=== PATIENT | male | born 1960 | race Caucasian/White ===

== ENCOUNTER 2020-01-26 12:43 | Inpatient (IN) | payer MEDICAID ==
[~2020-01-26] VITALS: Ht 167.6 cm; Wt 63.8 kg
[2020-01-26] MEDS ORDERED: BENZONATATE 100 MG CAPSULE PO ONE (13:30)
[2020-01-26] MEDS ORDERED: ACETAMINOPHEN 500 MG TABLET PO ONE (13:30)
[2020-01-26] MEDS ORDERED: SODIUM CHLORIDE 0.9% 2,050 ML IV ONE (14:24)
[2020-01-26] MEDS ORDERED: AZITHROMYCIN 500 MG/NS 250 ML IV ONE (14:30)
[2020-01-26] MEDS ORDERED: CefTRIAXone 1 GM/DEXTROSE 50 ML IV ONE (14:30)
[2020-01-26] MEDS ORDERED: 0.9% SODIUM CHLORIDE 10 ML SYRINGE IVP PRN (14:45)
[2020-01-26] MEDS ORDERED: ACETAMINOPHEN 325 MG TABLET PO PRN (14:45)
[2020-01-26 15:20] LABS: BASOPHILS % (AUTO) 0.2 % (0.0-2.0); EOSINOPHILS % (AUTO) 0 % (1.0-6.0); HEMATOCRIT 36.5 % (41-53); HEMOGLOBIN 12.5 g/dL (13.5-17.5); LYMPHOCYTES # (AUTO) 0.6 K/uL (1.0-4.8); LYMPHOCYTES % (AUTO) 5.2 % (22.0-44.0); MEAN CORPUSCULAR HEMOGLOBIN 31.9 pg (26.0-34.0); MEAN CORPUSCULAR HGB CONC 34.3 G/dL (31.0-37.0); MEAN CORPUSCULAR VOLUME 93 fL (80-100); MONOCYTES # (AUTO) 0.4 K/uL (0.1-1.0); MONOCYTES % (AUTO) 3.6 % (2.0-9.0); NEUTROPHILS # (AUTO) 11.1 K/uL (1.8-7.7); PLATELET COUNT (AUTO) 192 K/uL (150-450); RED BLOOD CELL COUNT(AUTO) 3.92 MIL/uL (4.50-5.90); RED CELL DISTRIBUTION WIDTH 13.8 % (11.5-14.5)
[2020-01-26 15:30] LABS: ANION GAP 8 mmol/L (8-16); CALCIUM, TOTAL 7.9 mg/dL (8.8-10.5); CARBON DIOXIDE 24 mmol/L (22-29); CHLORIDE 103 mmol/L (98-107); GLOMERULAR FILTR. RATE CALC > 60 mL/min (>60); GLUCOSE,RANDOM 117 mg/dL (70-110); POTASSIUM 3.7 mmol/L (3.5-5.1); SODIUM SERUM 135 mmol/L (136-145); UREA NITROGEN, BLOOD 11 mg/dL (7-18)
[2020-01-26 15:43] LABS: B-TYPE NATRIURETIC PEPTIDE 126 pg/mL (0-100)
[2020-01-26 15:50] LABS: APPEARANCE,URINE CLEAR (CLEAR); BILIRUBIN,URINE NEGATIVE (NEGATIVE); GLUCOSE, URINE (UA) NEGATIVE (NEGATIVE); KETONES,URINE NEGATIVE (NEGATIVE); LEUKOCYTE ESTERASE ,URINE NEGATIVE (NEGATIVE); NITRATE,URINE NEGATIVE (NEGATIVE); OCCULT BLOOD,URINE NEGATIVE (NEGATIVE); PROTEIN,URINE POS 1+ (NEGATIVE); UROBILINOGEN,URINE 0.2 mg/dL (<=1.0)
[2020-01-26 15:55] LABS: ALANINE AMINOTRANSFERASE 80 U/L (12-78); ALBUMIN 2.9 g/dL (3.4-5.0); ALKALINE PHOSPHATASE 351 U/L (46-116); ASPARTATE AMINOTRANSFERASE 84 U/L (15-37); BILIRUBIN,TOTAL 0.5 mg/dL (0.1-1.0); C-REACTIVE PROTEIN QUANT 21.05 mg/dL (0.00-0.30); CREATINE KINASE, TOTAL ONLY 91 U/L (39-308); TOTAL PROTEIN, SERUM 6.8 g/dL (6.4-8.2)
[2020-01-26 16:10] LABS: BACTERIA,URINE None Seen /HPF (None Seen); RBC,URINE None Seen /HPF (0-2); WBC,URINE 0-2 /HPF (0-5)
[2020-01-26 16:11] LABS: SQUAMOUS EPITHELIAL CELL,UR None Seen /LPF (None Seen)
[2020-01-26 16:25] LABS: INFLUENZA TYPE A NEGATIVE FOR TYPE A (NEGATIVE); INFLUENZA TYPE B NEGATIVE FOR TYPE B (NEGATIVE)
[2020-01-26] MEDS ORDERED: MAGNESIUM HYDROXIDE SUSPENSION 30 ML UDCUP PO PRN (16:45)
[2020-01-26] MEDS ORDERED: MORPHINE SULFATE 2 MG/ML SYRINGE IVP PRN (16:45)
[2020-01-26] MEDS ORDERED: BISACODYL 10 MG RECTAL RECTAL SUPPOSITORY PR PRN (16:45)
[2020-01-26 17:33] LABS: FERRITIN 917 ng/mL (26-388)
[2020-01-26 17:41] LABS: D-DIMER 0.46 mg/L FEU (0.00-0.50)
[2020-01-26 17:51] VITALS: BP 103/67
[2020-01-26 17:53] LABS: LACTATE DEHYDROGENASE 436 U/L (85-227)
[2020-01-26 19:26] VITALS: BP 115/76
[2020-01-26] MEDS ORDERED: HYDROXYCHLOROQUINE SULFATE 200 MG TABLET PO SCH (21:00)
[2020-01-26] MEDS: THIAMINE HCL 100 MG/ML 2ML VIAL IVP SCH (21:06)
[2020-01-26] MEDS: DOCUSATE SODIUM 100 MG CAPSULE PO SCH (21:06)
[2020-01-26] MEDS: ASCORBIC ACID 500 MG TABLET PO SCH (21:06)
[2020-01-26] MEDS: GuaiFENesin/D-METHORPHAN/PHENYLEPH 5 ML LIQUID ORAL.SYG PO PRN (21:19)
[2020-01-26 23:26] VITALS: BP 101/73
[2020-01-27 03:34] VITALS: BP 105/69
[2020-01-27] MEDS: GuaiFENesin/D-METHORPHAN/PHENYLEPH 5 ML LIQUID ORAL.SYG PO PRN ×3 (06:57→23:43)
[2020-01-27 07:08] LABS: BASOPHILS % (AUTO) 0.1 % (0.0-2.0); EOSINOPHILS % (AUTO) 0 % (1.0-6.0); HEMATOCRIT 36.6 % (41-53); HEMOGLOBIN 12.5 g/dL (13.5-17.5); LYMPHOCYTES % (AUTO) 6.8 % (22.0-44.0); MEAN CORPUSCULAR HEMOGLOBIN 32.2 pg (26.0-34.0); MEAN CORPUSCULAR HGB CONC 34.2 G/dL (31.0-37.0); MEAN CORPUSCULAR VOLUME 94 fL (80-100); MONOCYTES # (AUTO) 0.5 K/uL (0.1-1.0); MONOCYTES % (AUTO) 3.1 % (2.0-9.0); NEUTROPHILS # (AUTO) 13.7 K/uL (1.8-7.7); PLATELET COUNT (AUTO) 208 K/uL (150-450); RED BLOOD CELL COUNT(AUTO) 3.89 MIL/uL (4.50-5.90)
[2020-01-27 07:45] VITALS: BP 109/71
[2020-01-27 07:52] LABS: C-REACTIVE PROTEIN QUANT 25.7 mg/dL (0.00-0.30)
[2020-01-27] MEDS: HEPARIN SODIUM,PORCINE 5,000 UNITS/ML VIAL SQ SCH ×4 (08:11→23:44)
[2020-01-27] MEDS: THIAMINE HCL 100 MG/ML 2ML VIAL IVP SCH ×2 (08:11→20:43)
[2020-01-27] MEDS: PANTOPRAZOLE SODIUM 40 MG DR TABLET PO SCH (08:12)
[2020-01-27] MEDS: AZITHROMYCIN 500 MG TABLET PO SCH (08:12)
[2020-01-27] MEDS: ONDANSETRON HCL 4 MG/2 ML VIAL IVP PRN (08:12)
[2020-01-27] MEDS: DOCUSATE SODIUM 100 MG CAPSULE PO SCH ×2 (08:12→20:43)
[2020-01-27] MEDS: ASCORBIC ACID 500 MG TABLET PO SCH ×3 (08:12→20:43)
[2020-01-27] MEDS ORDERED: HYDROXYCHLOROQUINE SULFATE 200 MG TABLET PO SCH (09:00)
[2020-01-27] MEDS ORDERED: HYDROXYCHLOROQUINE SULFATE 200 MG TABLET PO ONE ×2 (10:30→21:00)
[2020-01-27 11:21] VITALS: BP 98/60
[2020-01-27] MEDS ORDERED: SODIUM CHLORIDE 0.9% 500 ML IV ONE (15:23)
[2020-01-27 15:25] VITALS: BP 93/60
[2020-01-27] MEDS: CefTRIAXone 1 GM/DEXTROSE 50 ML IV SCH (15:42)
[2020-01-27 19:51] VITALS: BP 98/62
[2020-01-27] MEDS: HYDROCODONE/ACETAMINOPHEN 5-325 MG TABLET PO PRN (20:44)
[2020-01-27 23:27] VITALS: BP 124/75
[2020-01-28 04:39] VITALS: BP 122/70
[2020-01-28 07:26] LABS: BASOPHILS % (AUTO) 0.3 % (0.0-2.0); EOSINOPHILS % (AUTO) 0.1 % (1.0-6.0); HEMATOCRIT 36.8 % (41-53); HEMOGLOBIN 12.5 g/dL (13.5-17.5); LYMPHOCYTES # (AUTO) 0.8 K/uL (1.0-4.8); LYMPHOCYTES % (AUTO) 7.8 % (22.0-44.0); MEAN CORPUSCULAR HEMOGLOBIN 32.4 pg (26.0-34.0); MEAN CORPUSCULAR HGB CONC 34.1 G/dL (31.0-37.0); MEAN CORPUSCULAR VOLUME 95 fL (80-100); MONOCYTES # (AUTO) 0.5 K/uL (0.1-1.0); NEUTROPHILS # (AUTO) 9.4 K/uL (1.8-7.7); PLATELET COUNT (AUTO) 245 K/uL (150-450); RED BLOOD CELL COUNT(AUTO) 3.87 MIL/uL (4.50-5.90)
[2020-01-28 07:37] VITALS: BP 117/69
[2020-01-28 07:44] LABS: NEUTROPHILS % (AUTO) 86.8 % (40.0-70.0)
[2020-01-28 07:54] LABS: ALANINE AMINOTRANSFERASE 100 U/L (12-78); ALBUMIN 2.6 g/dL (3.4-5.0); ALKALINE PHOSPHATASE 363 U/L (46-116); ANION GAP 9 mmol/L (8-16); ASPARTATE AMINOTRANSFERASE 98 U/L (15-37); BILIRUBIN,TOTAL 0.5 mg/dL (0.1-1.0); C-REACTIVE PROTEIN QUANT 20.69 mg/dL (0.00-0.30); CALCIUM, TOTAL 8.3 mg/dL (8.8-10.5); CARBON DIOXIDE 24 mmol/L (22-29); CHLORIDE 102 mmol/L (98-107); CREATININE 1.01 mg/dL (0.60-1.30); FERRITIN 748 ng/mL (26-388); GLOMERULAR FILTR. RATE CALC > 60 mL/min (>60); GLUCOSE,RANDOM 101 mg/dL (70-110); POTASSIUM 3.8 mmol/L (3.5-5.1); SODIUM SERUM 135 mmol/L (136-145); TOTAL PROTEIN, SERUM 6.8 g/dL (6.4-8.2); UREA NITROGEN, BLOOD 15 mg/dL (7-18)
[2020-01-28 08:06] LABS: LACTATE DEHYDROGENASE 499 U/L (85-227)
[2020-01-28] MEDS: GuaiFENesin/D-METHORPHAN/PHENYLEPH 5 ML LIQUID ORAL.SYG PO PRN ×3 (08:35→23:50)
[2020-01-28] MEDS: ASCORBIC ACID 500 MG TABLET PO SCH ×3 (08:36→20:22)
[2020-01-28] MEDS: HEPARIN SODIUM,PORCINE 5,000 UNITS/ML VIAL SQ SCH ×3 (08:36→23:50)
[2020-01-28] MEDS: HYDROXYCHLOROQUINE SULFATE 200 MG TABLET PO SCH ×2 (08:36→21:19)
[2020-01-28] MEDS: PANTOPRAZOLE SODIUM 40 MG DR TABLET PO SCH (08:36)
[2020-01-28] MEDS: AZITHROMYCIN 500 MG TABLET PO SCH (08:36)
[2020-01-28] MEDS: DOCUSATE SODIUM 100 MG CAPSULE PO SCH ×2 (08:37→20:22)
[2020-01-28] MEDS: THIAMINE HCL 100 MG/ML 2ML VIAL IVP SCH ×2 (08:37→20:22)
[2020-01-28 12:00] VITALS: BP 119/69
[2020-01-28] MEDS: ZINC GLUCONATE 50 MG TABLET PO SCH (12:23)
[2020-01-28 16:00] VITALS: BP 126/67
[2020-01-28] MEDS: CefTRIAXone 1 GM/DEXTROSE 50 ML IV SCH (16:13)
[2020-01-28 20:00] VITALS: BP 129/72
[2020-01-29 00:16] VITALS: BP 121/69
[2020-01-29] MEDS: HYDROCODONE/ACETAMINOPHEN 5-325 MG TABLET PO PRN (03:13)
[2020-01-29] MEDS: GuaiFENesin/D-METHORPHAN/PHENYLEPH 5 ML LIQUID ORAL.SYG PO PRN ×2 (05:52→13:55)
[2020-01-29 06:01] VITALS: BP 105/58
[2020-01-29 06:54] LABS: BASOPHILS % (AUTO) 0.1 % (0.0-2.0); EOSINOPHILS % (AUTO) 0.1 % (1.0-6.0); HEMATOCRIT 35.2 % (41-53); HEMOGLOBIN 12.4 g/dL (13.5-17.5); LYMPHOCYTES # (AUTO) 0.9 K/uL (1.0-4.8); LYMPHOCYTES % (AUTO) 9.6 % (22.0-44.0); MEAN CORPUSCULAR HEMOGLOBIN 33.5 pg (26.0-34.0); MEAN CORPUSCULAR HGB CONC 35.3 G/dL (31.0-37.0); MEAN CORPUSCULAR VOLUME 95 fL (80-100); MONOCYTES # (AUTO) 0.5 K/uL (0.1-1.0); MONOCYTES % (AUTO) 5.7 % (2.0-9.0); NEUTROPHILS # (AUTO) 7.6 K/uL (1.8-7.7); NEUTROPHILS % (AUTO) 84.5 % (40.0-70.0); PLATELET COUNT (AUTO) 322 K/uL (150-450); RED BLOOD CELL COUNT(AUTO) 3.71 MIL/uL (4.50-5.90); RED CELL DISTRIBUTION WIDTH 13.9 % (11.5-14.5)
[2020-01-29 07:47] LABS: ALANINE AMINOTRANSFERASE 130 U/L (12-78); ALBUMIN 2.7 g/dL (3.4-5.0); ALKALINE PHOSPHATASE 493 U/L (46-116); ANION GAP 10 mmol/L (8-16); ASPARTATE AMINOTRANSFERASE 111 U/L (15-37); BILIRUBIN,TOTAL 0.7 mg/dL (0.1-1.0); CALCIUM, TOTAL 8.6 mg/dL (8.8-10.5); CARBON DIOXIDE 24 mmol/L (22-29); CHLORIDE 99 mmol/L (98-107); CREATININE 1.01 mg/dL (0.60-1.30); FERRITIN 770 ng/mL (26-388); GLOMERULAR FILTR. RATE CALC > 60 mL/min (>60); GLUCOSE,RANDOM 107 mg/dL (70-110); POTASSIUM 3.9 mmol/L (3.5-5.1); SODIUM SERUM 133 mmol/L (136-145); TOTAL PROTEIN, SERUM 7.3 g/dL (6.4-8.2); UREA NITROGEN, BLOOD 9 mg/dL (7-18)
[2020-01-29 08:00] VITALS: BP 118/62
[2020-01-29 08:07] LABS: LACTATE DEHYDROGENASE 467 U/L (85-227)
[2020-01-29] MEDS: HEPARIN SODIUM,PORCINE 5,000 UNITS/ML VIAL SQ SCH ×2 (08:55→16:33)
[2020-01-29] MEDS: ASCORBIC ACID 500 MG TABLET PO SCH ×3 (08:55→21:11)
[2020-01-29] MEDS: THIAMINE HCL 100 MG/ML 2ML VIAL IVP SCH ×2 (08:55→21:12)
[2020-01-29] MEDS: HYDROXYCHLOROQUINE SULFATE 200 MG TABLET PO SCH ×2 (08:55→21:12)
[2020-01-29] MEDS: AZITHROMYCIN 500 MG TABLET PO SCH (08:55)
[2020-01-29] MEDS: PANTOPRAZOLE SODIUM 40 MG DR TABLET PO SCH (08:56)
[2020-01-29] MEDS: ZINC GLUCONATE 50 MG TABLET PO SCH (08:56)
[2020-01-29] MEDS: DOCUSATE SODIUM 100 MG CAPSULE PO SCH ×2 (08:56→21:00)
[2020-01-29] MEDS: ACETAMINOPHEN 325 MG TABLET PO PRN (12:43)
[2020-01-29] MEDS: ONDANSETRON HCL 4 MG/2 ML VIAL IVP PRN (17:35)
[2020-01-29 20:54] VITALS: BP 125/73
[2020-01-30] MEDS: HEPARIN SODIUM,PORCINE 5,000 UNITS/ML VIAL SQ SCH ×3 (00:05→16:28)
[2020-01-30 00:13] VITALS: BP 125/79
[2020-01-30] MEDS: GuaiFENesin/D-METHORPHAN/PHENYLEPH 5 ML LIQUID ORAL.SYG PO PRN ×2 (01:52→16:34)
[2020-01-30 04:35] VITALS: BP 108/65
[2020-01-30 08:10] VITALS: BP 99/68
[2020-01-30] MEDS: DOCUSATE SODIUM 100 MG CAPSULE PO SCH ×2 (09:00→21:00)
[2020-01-30] MEDS: ACETAMINOPHEN 325 MG TABLET PO PRN (09:01)
[2020-01-30] MEDS: HYDROXYCHLOROQUINE SULFATE 200 MG TABLET PO SCH ×2 (09:01→21:20)
[2020-01-30] MEDS: THIAMINE HCL 100 MG/ML 2ML VIAL IVP SCH ×2 (09:01→21:21)
[2020-01-30] MEDS: PANTOPRAZOLE SODIUM 40 MG DR TABLET PO SCH (09:02)
[2020-01-30] MEDS: ASCORBIC ACID 500 MG TABLET PO SCH ×3 (09:02→21:20)
[2020-01-30] MEDS: AZITHROMYCIN 500 MG TABLET PO SCH (09:02)
[2020-01-30] MEDS: ZINC GLUCONATE 50 MG TABLET PO SCH (09:02)
[2020-01-30 09:27] LABS: ALANINE AMINOTRANSFERASE 132 U/L (12-78); ALBUMIN 2.4 g/dL (3.4-5.0); ALKALINE PHOSPHATASE 532 U/L (46-116); ANION GAP 10 mmol/L (8-16); ASPARTATE AMINOTRANSFERASE 109 U/L (15-37); C-REACTIVE PROTEIN QUANT 18.99 mg/dL (0.00-0.30); CALCIUM, TOTAL 8.2 mg/dL (8.8-10.5); CARBON DIOXIDE 24 mmol/L (22-29); CHLORIDE 98 mmol/L (98-107); CREATININE 0.89 mg/dL (0.60-1.30); FERRITIN 623 ng/mL (26-388); GLOMERULAR FILTR. RATE CALC > 60 mL/min (>60); GLUCOSE,RANDOM 110 mg/dL (70-110); POTASSIUM 3.4 mmol/L (3.5-5.1); SODIUM SERUM 132 mmol/L (136-145); TOTAL PROTEIN, SERUM 6.7 g/dL (6.4-8.2); UREA NITROGEN, BLOOD 6 mg/dL (7-18)
[2020-01-30 09:45] LABS: LACTATE DEHYDROGENASE 423 U/L (85-227)
[2020-01-30] MEDS ORDERED: POTASSIUM CHLORIDE 20 MEQ ER TABLET PO PRN (10:30)
[2020-01-30] MEDS ORDERED: POTASSIUM CHL 10 MEQ/WATER 50 ML IV PRN (10:30)
[2020-01-30 10:58] LABS: PROTHROMBIN TIME 9.9 SEC (9.4-11.6)
[2020-01-30 11:09] LABS: LEGIONELLA PNEUMO AG URINE Negative (Negative); ORGANISM ID Not indicated.; S PNEUMO SOURCE Urine; STREP PNEUMONIAE AG URINE Negative (Negative); STREP.PNEUMO BODY FLUID CULT. Not indicated.
[2020-01-30 11:37] VITALS: BP 107/64
[2020-01-30 18:36] VITALS: BP 123/73
[2020-01-30 21:00] VITALS: BP 112/73
[2020-01-31] MEDS: HEPARIN SODIUM,PORCINE 5,000 UNITS/ML VIAL SQ SCH ×3 (00:05→16:58)
[2020-01-31] MEDS: GuaiFENesin/D-METHORPHAN/PHENYLEPH 5 ML LIQUID ORAL.SYG PO PRN ×2 (00:06→18:47)
[2020-01-31] MEDS: ACETAMINOPHEN 325 MG TABLET PO PRN ×3 (00:06→18:47)
[2020-01-31 00:10] VITALS: BP 100/73
[2020-01-31 04:50] VITALS: BP 105/68
[2020-01-31 08:00] VITALS: BP 101/70
[2020-01-31] MEDS: DOCUSATE SODIUM 100 MG CAPSULE PO SCH ×2 (09:00→21:00)
[2020-01-31] MEDS: THIAMINE HCL 100 MG/ML 2ML VIAL IVP SCH ×2 (09:46→20:52)
[2020-01-31] MEDS: PANTOPRAZOLE SODIUM 40 MG DR TABLET PO SCH (09:46)
[2020-01-31] MEDS: ASCORBIC ACID 500 MG TABLET PO SCH ×3 (09:47→20:51)
[2020-01-31] MEDS: HYDROXYCHLOROQUINE SULFATE 200 MG TABLET PO SCH ×2 (09:47→20:51)
[2020-01-31] MEDS: ZINC GLUCONATE 50 MG TABLET PO SCH (09:54)
[2020-01-31 12:00] VITALS: BP 98/68
[2020-01-31] MEDS ORDERED: DENTURE ADHESIVE 68 GM CREAM DT PRN (14:00)
[2020-01-31 16:00] VITALS: BP 121/79
[2020-01-31] MEDS ORDERED: VITAMINS A & D 5 GM OINTMENT PACKET TP ONE (17:30)
[2020-01-31] MEDS ORDERED: VITAMINS A & D 113 GM OINTMENT TP PRN (17:45)
[2020-01-31 20:30] VITALS: BP 101/65
[2020-01-31] MEDS: ONDANSETRON HCL 4 MG/2 ML VIAL IVP PRN (20:58)
[2020-02-01 00:40] VITALS: BP 93/55
[2020-02-01] MEDS: ACETAMINOPHEN 325 MG TABLET PO PRN ×2 (00:42→05:17)
[2020-02-01] MEDS: HEPARIN SODIUM,PORCINE 5,000 UNITS/ML VIAL SQ SCH ×3 (00:42→16:00)
[2020-02-01] MEDS: GuaiFENesin/D-METHORPHAN/PHENYLEPH 5 ML LIQUID ORAL.SYG PO PRN (00:43)
[2020-02-01 05:01] VITALS: BP 98/60
[2020-02-01 08:00] VITALS: BP 102/65
[2020-02-01 08:13] LABS: BASOPHILS % (AUTO) 0.2 % (0.0-2.0); EOSINOPHILS % (AUTO) 2.2 % (1.0-6.0); HEMATOCRIT 33.7 % (41-53); HEMOGLOBIN 11.7 g/dL (13.5-17.5); LYMPHOCYTES # (AUTO) 0.8 K/uL (1.0-4.8); LYMPHOCYTES % (AUTO) 8.9 % (22.0-44.0); MEAN CORPUSCULAR HEMOGLOBIN 34.1 pg (26.0-34.0); MEAN CORPUSCULAR HGB CONC 34.8 G/dL (31.0-37.0); MEAN CORPUSCULAR VOLUME 98 fL (80-100); MONOCYTES # (AUTO) 0.5 K/uL (0.1-1.0); MONOCYTES % (AUTO) 5.1 % (2.0-9.0); NEUTROPHILS # (AUTO) 7.8 K/uL (1.8-7.7); NEUTROPHILS % (AUTO) 83.6 % (40.0-70.0); PLATELET COUNT (AUTO) 566 K/uL (150-450); RED BLOOD CELL COUNT(AUTO) 3.43 MIL/uL (4.50-5.90)
[2020-02-01 08:21] LABS: ALANINE AMINOTRANSFERASE 115 U/L (12-78); ALBUMIN 2.1 g/dL (3.4-5.0); ALKALINE PHOSPHATASE 626 U/L (46-116); ANION GAP 9 mmol/L (8-16); ASPARTATE AMINOTRANSFERASE 78 U/L (15-37); BILIRUBIN,TOTAL 0.9 mg/dL (0.1-1.0); CALCIUM, TOTAL 8.2 mg/dL (8.8-10.5); CARBON DIOXIDE 23 mmol/L (22-29); CHLORIDE 99 mmol/L (98-107); CREATININE 1.01 mg/dL (0.60-1.30); GLOMERULAR FILTR. RATE CALC > 60 mL/min (>60); GLUCOSE,RANDOM 127 mg/dL (70-110); POTASSIUM 4.2 mmol/L (3.5-5.1); SODIUM SERUM 131 mmol/L (136-145); TOTAL PROTEIN, SERUM 7.1 g/dL (6.4-8.2); UREA NITROGEN, BLOOD 11 mg/dL (7-18)
[2020-02-01] MEDS: DOCUSATE SODIUM 100 MG CAPSULE PO SCH ×2 (09:00→21:00)
[2020-02-01] MEDS: PANTOPRAZOLE SODIUM 40 MG DR TABLET PO SCH (09:53)
[2020-02-01] MEDS: THIAMINE HCL 100 MG/ML 2ML VIAL IVP SCH ×2 (09:53→22:00)
[2020-02-01] MEDS: HYDROCODONE/ACETAMINOPHEN 5-325 MG TABLET PO PRN ×2 (09:53→22:27)
[2020-02-01] MEDS: ASCORBIC ACID 500 MG TABLET PO SCH ×3 (09:53→21:59)
[2020-02-01] MEDS: ZINC GLUCONATE 50 MG TABLET PO SCH (09:53)
[2020-02-01 10:09] LABS: FERRITIN 503 ng/mL (26-388)
[2020-02-01 10:21] LABS: C-REACTIVE PROTEIN QUANT 22.89 mg/dL (0.00-0.30)
[2020-02-01 10:23] LABS: LACTATE DEHYDROGENASE 460 U/L (85-227)
[2020-02-01 12:00] VITALS: BP 103/67
[2020-02-01] MEDS: GuaiFENesin SR 600 MG ER TABLET PO SCH ×2 (13:17→21:59)
[2020-02-01 16:00] VITALS: BP 108/76
[2020-02-01 20:30] VITALS: BP 114/72
[2020-02-02] MEDS: HEPARIN SODIUM,PORCINE 5,000 UNITS/ML VIAL SQ SCH ×3 (00:21→17:50)
[2020-02-02 00:22] VITALS: BP 108/74
[2020-02-02] MEDS: GuaiFENesin/D-METHORPHAN/PHENYLEPH 5 ML LIQUID ORAL.SYG PO PRN ×4 (02:35→22:15)
[2020-02-02 04:50] VITALS: BP 108/77
[2020-02-02 07:50] LABS: ALANINE AMINOTRANSFERASE 106 U/L (12-78); ALBUMIN 2.2 g/dL (3.4-5.0); ALKALINE PHOSPHATASE 707 U/L (46-116); ANION GAP 9 mmol/L (8-16); ASPARTATE AMINOTRANSFERASE 74 U/L (15-37); BILIRUBIN,TOTAL 0.6 mg/dL (0.1-1.0); CALCIUM, TOTAL 8.4 mg/dL (8.8-10.5); CARBON DIOXIDE 25 mmol/L (22-29); CHLORIDE 98 mmol/L (98-107); CREATININE 0.85 mg/dL (0.60-1.30); GLOMERULAR FILTR. RATE CALC > 60 mL/min (>60); GLUCOSE,RANDOM 92 mg/dL (70-110); POTASSIUM 4.4 mmol/L (3.5-5.1); SODIUM SERUM 132 mmol/L (136-145); TOTAL PROTEIN, SERUM 7.5 g/dL (6.4-8.2); UREA NITROGEN, BLOOD 11 mg/dL (7-18)
[2020-02-02] MEDS: DOCUSATE SODIUM 100 MG CAPSULE PO SCH ×2 (08:20→21:00)
[2020-02-02] MEDS: ZINC GLUCONATE 50 MG TABLET PO SCH (08:20)
[2020-02-02] MEDS: ASCORBIC ACID 500 MG TABLET PO SCH ×3 (08:20→20:15)
[2020-02-02] MEDS: PANTOPRAZOLE SODIUM 40 MG DR TABLET PO SCH (08:20)
[2020-02-02] MEDS: THIAMINE HCL 100 MG/ML 2ML VIAL IVP SCH ×2 (08:20→20:15)
[2020-02-02] MEDS: GuaiFENesin SR 600 MG ER TABLET PO SCH ×2 (08:20→20:15)
[2020-02-02 08:33] VITALS: BP 110/67
[2020-02-02] MEDS: ONDANSETRON HCL 4 MG/2 ML VIAL IVP PRN ×2 (10:20→17:50)
[2020-02-02 12:34] VITALS: BP 116/63
[2020-02-02 18:08] VITALS: BP 104/61
[2020-02-02 20:25] VITALS: BP 111/65
[2020-02-02] MEDS: ACETAMINOPHEN 325 MG TABLET PO PRN (20:39)
[2020-02-03 00:30] VITALS: BP 109/66
[2020-02-03] MEDS: ZOLPIDEM TARTRATE 5 MG TABLET PO PRN (00:33)
[2020-02-03] MEDS: HEPARIN SODIUM,PORCINE 5,000 UNITS/ML VIAL SQ SCH ×3 (00:33→17:01)
[2020-02-03] MEDS: GuaiFENesin/D-METHORPHAN/PHENYLEPH 5 ML LIQUID ORAL.SYG PO PRN ×3 (05:21→21:22)
[2020-02-03 05:25] VITALS: BP 107/64
[2020-02-03] MEDS: ACETAMINOPHEN 325 MG TABLET PO PRN (05:25)
[2020-02-03 08:00] VITALS: BP 111/67
[2020-02-03] MEDS: PANTOPRAZOLE SODIUM 40 MG DR TABLET PO SCH (08:49)
[2020-02-03] MEDS: ZINC GLUCONATE 50 MG TABLET PO SCH (08:50)
[2020-02-03] MEDS: THIAMINE HCL 100 MG/ML 2ML VIAL IVP SCH ×2 (08:50→21:04)
[2020-02-03] MEDS: ASCORBIC ACID 500 MG TABLET PO SCH ×3 (08:50→21:04)
[2020-02-03] MEDS: GuaiFENesin SR 600 MG ER TABLET PO SCH ×2 (08:51→21:05)
[2020-02-03] MEDS: DOCUSATE SODIUM 100 MG CAPSULE PO SCH ×2 (08:51→18:08)
[2020-02-03 12:00] VITALS: BP 101/62
[2020-02-03 16:00] VITALS: BP 104/69
[2020-02-03 20:00] VITALS: BP 116/68
[2020-02-04] VITALS: BP 105/80
[2020-02-04] MEDS: HEPARIN SODIUM,PORCINE 5,000 UNITS/ML VIAL SQ SCH ×3 (00:03→16:00)
[2020-02-04] MEDS: ZOLPIDEM TARTRATE 5 MG TABLET PO PRN (00:22)
[2020-02-04 04:00] VITALS: BP 92/57
[2020-02-04 07:19] LABS: BASOPHILS % (AUTO) 0.7 % (0.0-2.0); HEMATOCRIT 36.7 % (41-53); HEMOGLOBIN 12.3 g/dL (13.5-17.5); LYMPHOCYTES # (AUTO) 1.2 K/uL (1.0-4.8); LYMPHOCYTES % (AUTO) 12.3 % (22.0-44.0); MEAN CORPUSCULAR HEMOGLOBIN 31.8 pg (26.0-34.0); MEAN CORPUSCULAR HGB CONC 33.6 G/dL (31.0-37.0); MEAN CORPUSCULAR VOLUME 95 fL (80-100); MONOCYTES # (AUTO) 0.7 K/uL (0.1-1.0); PLATELET COUNT (AUTO) 677 K/uL (150-450); RED BLOOD CELL COUNT(AUTO) 3.88 MIL/uL (4.50-5.90); RED CELL DISTRIBUTION WIDTH 14.5 % (11.5-14.5)
[2020-02-04 08:00] LABS: ALANINE AMINOTRANSFERASE 98 U/L (12-78); ALBUMIN 2.2 g/dL (3.4-5.0); ALKALINE PHOSPHATASE 847 U/L (46-116); ANION GAP 11 mmol/L (8-16); ASPARTATE AMINOTRANSFERASE 67 U/L (15-37); BILIRUBIN,TOTAL 0.4 mg/dL (0.1-1.0); C-REACTIVE PROTEIN QUANT 12.06 mg/dL (0.00-0.30); CALCIUM, TOTAL 8.7 mg/dL (8.8-10.5); CARBON DIOXIDE 22 mmol/L (22-29); CHLORIDE 99 mmol/L (98-107); CREATININE 0.86 mg/dL (0.60-1.30); FERRITIN 624 ng/mL (26-388); GLOMERULAR FILTR. RATE CALC > 60 mL/min (>60); GLUCOSE,RANDOM 92 mg/dL (70-110); LACTATE DEHYDROGENASE 396 U/L (85-227); POTASSIUM 5.1 mmol/L (3.5-5.1); SODIUM SERUM 132 mmol/L (136-145); TOTAL PROTEIN, SERUM 7.9 g/dL (6.4-8.2); UREA NITROGEN, BLOOD 16 mg/dL (7-18)
[2020-02-04] MEDS: ASCORBIC ACID 500 MG TABLET PO SCH (08:49)
[2020-02-04] MEDS: PANTOPRAZOLE SODIUM 40 MG DR TABLET PO SCH (08:49)
[2020-02-04] MEDS: ZINC GLUCONATE 50 MG TABLET PO SCH (08:49)
[2020-02-04] MEDS: THIAMINE HCL 100 MG/ML 2ML VIAL IVP SCH (08:50)
[2020-02-04] MEDS: DOCUSATE SODIUM 100 MG CAPSULE PO SCH (08:50)
[2020-02-04] MEDS: GuaiFENesin SR 600 MG ER TABLET PO SCH (08:50)
[2020-02-04 08:53] VITALS: BP 119/68
[2020-02-04 12:13] VITALS: BP 109/62
[2020-02-04 17:37] VITALS: BP 111/72
[2020-02-04 20:00] VITALS: BP 139/86
[2020-02-05] VITALS: BP 118/68
[2020-02-05] MEDS: HEPARIN SODIUM,PORCINE 5,000 UNITS/ML VIAL SQ SCH ×3 (00:18→17:23)
[2020-02-05 04:00] VITALS: BP 102/61
[2020-02-05] MEDS: PANTOPRAZOLE SODIUM 40 MG DR TABLET PO SCH (08:11)
[2020-02-05 08:30] VITALS: BP 115/68
[2020-02-05] MEDS: GuaiFENesin/D-METHORPHAN/PHENYLEPH 5 ML LIQUID ORAL.SYG PO PRN ×2 (11:16→17:42)
[2020-02-05 12:23] VITALS: BP 124/69
[2020-02-05 16:46] VITALS: BP 113/77
[2020-02-05 20:00] VITALS: BP 122/47
[2020-02-05] MEDS: HYDROCODONE/ACETAMINOPHEN 5-325 MG TABLET PO PRN (21:00)
[2020-02-05] MEDS: ZOLPIDEM TARTRATE 5 MG TABLET PO PRN (21:01)
[2020-02-06] VITALS: BP 102/51
[2020-02-06] MEDS: HEPARIN SODIUM,PORCINE 5,000 UNITS/ML VIAL SQ SCH ×3 (00:17→16:22)
[2020-02-06 04:00] VITALS: BP 95/49
[2020-02-06] MEDS: HYDROCODONE/ACETAMINOPHEN 5-325 MG TABLET PO PRN ×3 (05:36→22:16)
[2020-02-06] MEDS: GuaiFENesin/D-METHORPHAN/PHENYLEPH 5 ML LIQUID ORAL.SYG PO PRN ×4 (05:36→22:16)
[2020-02-06 07:45] LABS: ALANINE AMINOTRANSFERASE 69 U/L (12-78); ALBUMIN 2.4 g/dL (3.4-5.0); ALKALINE PHOSPHATASE 738 U/L (46-116); ANION GAP 10 mmol/L (8-16); ASPARTATE AMINOTRANSFERASE 43 U/L (15-37); BILIRUBIN,TOTAL 0.4 mg/dL (0.1-1.0); CALCIUM, TOTAL 8.9 mg/dL (8.8-10.5); CARBON DIOXIDE 23 mmol/L (22-29); CHLORIDE 99 mmol/L (98-107); CREATININE 0.92 mg/dL (0.60-1.30); FERRITIN 558 ng/mL (26-388); GLOMERULAR FILTR. RATE CALC > 60 mL/min (>60); GLUCOSE,RANDOM 92 mg/dL (70-110); LACTATE DEHYDROGENASE 314 U/L (85-227); POTASSIUM 4.4 mmol/L (3.5-5.1); SODIUM SERUM 132 mmol/L (136-145); TOTAL PROTEIN, SERUM 8.1 g/dL (6.4-8.2); UREA NITROGEN, BLOOD 20 mg/dL (7-18)
[2020-02-06 08:00] VITALS: BP 118/63
[2020-02-06] MEDS: PANTOPRAZOLE SODIUM 40 MG DR TABLET PO SCH (08:51)
[2020-02-06 11:20] VITALS: BP 120/82
[2020-02-06 15:11] VITALS: BP 110/73
[2020-02-06 19:45] VITALS: BP 112/77
[2020-02-06] MEDS: ZOLPIDEM TARTRATE 5 MG TABLET PO PRN (22:16)
[2020-02-07 08:00] VITALS: BP 128/86
[2020-02-07] MEDS: PANTOPRAZOLE SODIUM 40 MG DR TABLET PO SCH (09:35)
[2020-02-07] MEDS: GuaiFENesin/D-METHORPHAN/PHENYLEPH 5 ML LIQUID ORAL.SYG PO PRN ×2 (09:35→15:23)
[2020-02-07] MEDS: HEPARIN SODIUM,PORCINE 5,000 UNITS/ML VIAL SQ SCH ×3 (09:35→15:23)
[2020-02-07 12:00] VITALS: BP 139/86
[2020-02-07] MEDS: HYDROCODONE/ACETAMINOPHEN 5-325 MG TABLET PO PRN (15:25)
[2020-02-07] MEDS ORDERED: CODE10LI PO (15:25)
[2020-02-07 15:39] VITALS: BP 108/64
== END 2020-02-07 17:00 | disposition home or self-care (01) | DRG 720 ==
LOC: EMS 12:44 → 5N 16:09
PROVIDERS: ADMIT Internal Medicine; ATTEND Internal Medicine
DX: A41.89 Other specified sepsis (principal); U07.1 COVID-19; K70.9 Alcoholic liver disease, unspecified; E44.0 Moderate protein-calorie malnutrition; J12.89 Other viral pneumonia; E78.5 Hyperlipidemia, unspecified; Z68.22 Body mass index [BMI] 22.0-22.9, adult
CPT/HCPCS: 76700; 80074; 82728; 83605; 83615; 84132; 84145; 85379; 85384; 86140; 86706; 86707; 87040; 87340; 87350; 87449; 87635; 87804; 87899; 93005; J0456; J0696; J1644; J2405; J3411; J7030; J7040